=== PATIENT | female | born 1985 | race Caucasian/White ===

== ENCOUNTER 2022-03-20 08:13 | Day surgery (SDC) | payer BC ==
[2022-03-13 10:12] LABS: BASOPHILS % (AUTO) 0.7 % (0-1); EOSINOPHILS % (AUTO) 0.5 % (0-6); LYMPHOCYTES # (AUTO) 2.2 X10'3 (1.1-4.8); LYMPHOCYTES % (AUTO) 31.5 % (21-51); MEAN CORPUSCULAR HEMOGLOBIN 30.1 PG (27.0-31.0); MEAN CORPUSCULAR HGB CONC 33.7 g/dL (33.0-36.5); MEAN CORPUSCULAR VOLUME 89.3 FL (78-98); MEAN PLATELET VOLUME 8.2 FL (7.4-10.4); MONOCYTES # (AUTO) 0.5 X10'3 (0-0.9); MONOCYTES % (AUTO) 6.9 % (2-12); NEUTROPHILS # (AUTO) 4.1 X10'3 (1.8-7.7); NEUTROPHILS % (AUTO) 60.4 % (42-75); PRE OP HEMATOCRIT 39.8 % (35.0-45.0); PRE OP HEMOGLOBIN 13.4 g/dL (12.0-16.0); PRE OP PLATELET COUNT 243 X10'3 (140-440); RED BLOOD COUNT 4.46 X10'6 (4.20-5.60); RED CELL DISTRIBUTION WIDTH 14.3 % (11.5-14.5)
[2022-03-13 10:23] LABS: ALBUMIN 4.1 G/DL (3.4-5.0); ALBUMIN/GLOBULIN RATIO 1.1 (1.1-1.5); ALKALINE PHOSPHATASE 54 IU/L (46-116); BLOOD UREA NITROGEN 9 MG/DL (7-18); CALCIUM 8.7 MG/DL (8.5-10.1); CHLORIDE 104 MMOL/L (99-107); CREATININE 0.82 MG/DL (0.40-0.90); PRE OP ANION GAP 10 (8-16); PRE OP AST 56 U/L (10-37); PRE OP BILIRUB, TOTAL 0.4 MG/DL (0.0-1.0); PRE OP GLUCOSE 89 MG/DL (70-104); PRE OP POTASSIUM 3.5 MMOL/L (3.4-5.1); PRE OP SODIUM 141 MMOL/L (135-145); TOTAL CARBON DIOXIDE 27.5 MMOL/L (24-32); TOTAL PROTEIN 7.8 G/DL (6.4-8.2); eGFR 79 ML/MIN
[2022-03-13 10:26] LABS: CLARITY,URINE CLEAR (Clear); COLOR,URINE YELLOW (Yellow); GLUCOSE, URINE NEGATIVE (Neg); KETONES,URINE NEGATIVE (Neg); LEUKOCYTE ESTERASE ,URINE NEGATIVE (Neg); NITRITES, URINE NEGATIVE (Neg); OCCULT BLOOD,URINE NEGATIVE (Neg); PROTEIN,URINE NEGATIVE (Neg); UROBILINOGEN,URINE 0.2 E.U/dL (0.2-1.0)
[2022-03-13 10:27] LABS: PRE OP ALT 93 U/L (30-65)
[2022-03-13 10:29] LABS: UA COLLECTION TYPE CLN CATCH MIDSTREAM
[2022-03-13 11:28] LABS: HCG SERUM QL NEGATIVE
[2022-03-20] VITALS (7 sets, daily range): BP systolic 125–149; BP diastolic 67–100
[~2022-03-20] VITALS: Ht 180.3 cm; Wt 124.6 kg
[~2022-03-20 08:13] MED LIST: NO HOME MEDS; ceFOXitin 2GM-NS 100mL ADDvant 100 ML IV ONE; famotidine 20mg tablet PO ONE; ringers solution, lacted 1,000 ML IV SCH
[2022-03-20] MEDS ORDERED: BUPIVAcaine/PF 5 mg/ml 10ml ONE (09:15)
[2022-03-20] MEDS ORDERED: morphine 2 MG/ML inj. syringe IV PRN (09:50)
[2022-03-20] MEDS ORDERED: morphine 4 MG/ML inj SYRINge IV PRN (09:50)
[2022-03-20] MEDS ORDERED: ringers solution, lacted 1,000 ML IV SCH (09:50)
[2022-03-20] MEDS ORDERED: ondansetron/PF 4mg/2ml inj IV PRN (09:50)
[2022-03-20] MEDS ORDERED: proCHLORperazine 10 MG/2 ml inj IV PRN (09:50)
[2022-03-20] MEDS ORDERED: meperidine/PF 25mg/ml syringe IV PRN ×2 (09:50)
[2022-03-20] MEDS ORDERED: sevoflurane 250ml liquid IH ONE (11:36)
[2022-03-20] MEDS ORDERED: dexamethasone sod phosphate 10mg/ml inj ONE (11:36)
[2022-03-20] MEDS ORDERED: LIDOcaine 1% (10mg/ml)w/preservative inj. 20ml MDV ONE (11:36)
[2022-03-20] MEDS ORDERED: neostigmine methylsulfate 1 MG/ML 10ml vial ONE (11:36)
[2022-03-20] MEDS ORDERED: glycopyrrolate 0.2mg/ml inj ONE (11:36)
[2022-03-20] MEDS ORDERED: fentaNYL/PF 50MCG/1 ML 2ML syringe ONE (11:43)
[2022-03-20] MEDS ORDERED: propofol inj 20 ML IV ONE (11:44)
[2022-03-20] MEDS ORDERED: midazolam 1 mg/ML 2ml injection ONE (11:44)
[2022-03-20] MEDS ORDERED: rocuronium 10mg/ml inj IV ONE (11:44)
[2022-03-20] MEDS ORDERED: methylene blue (5mg/ml) 50mg/10ml ampul IV ONE (11:46)
[2022-03-20] MEDS ORDERED: ondansetron/PF 4mg/2ml inj ONE (11:58)
[2022-03-20] MEDS ORDERED: metoprolol tartrate 1mg/ml inj IV ONE (11:58)
[2022-03-20] MEDS ORDERED: meperidine/PF 25mg/ml syringe ONE (12:27)
[2022-03-20] MEDS ORDERED: oxyCODONE/APAP 5-325mg tablet PO ONE (13:40)
--- NOTE | 2022-03-20 13:42 | NUR ---
Received from OR via [facility], accompanied by Anesthesiologist DR. BHAKTA and report given by Anesthesiolgist. LAP SITES CDI. PIV TO RIGHT HAND 20G WITH LR RUNNING AT 100ML/HR. HYPERTESNIVE WITH DIASTOLIC 100, DR. BHAKTA AWARE, METOPROLOL GIVEN IN OR. ON 10L MASK SATURATION 100%. STATES SEVERE PAIN HOWEVER UNABLE TO GIVE A NUMBER, DEMEROL GIVEN. RESPONDS TO QUESTIONS, STILL GROGGY. WILL CONTINUE TO MONITOR.
[2022-03-20] MEDS: meperidine/PF 25mg/ml syringe IV PRN ×2 (13:49→14:24)
--- NOTE | 2022-03-20 14:42 | NUR ---
PATIENT DISCHARGED HOME TO , VARGAS WITH ALL BELONGINGS. PAIN MINIMAL, CONTROLLED WITH PO PERCOCET. DENIES NAUSEA. A&O. PIV REMOVED.
== END 2022-03-20 14:42 | disposition home or self-care (01) ==
LOC: PAS 08:13
PROVIDERS: ATTEND Obstetrics & Gynecology
DX: N83.292 Other ovarian cyst, left side (principal); N80.3 Endometriosis of pelvic peritoneum; E66.9 Obesity, unspecified; N80.1 Endometriosis of ovary; N73.6 Female pelvic peritoneal adhesions (postinfective); Z79.899 Other long term (current) drug therapy
CPT/HCPCS: 36415; 58350; 58558; 58662; 80053; 81003; 82948; 84703; 85025; 86885; 86900; 86901; 87811; 93005; A6258; C1758; J0694; J1100; J2175; J2250; J2405; J2704; J2710; J3010; J3490; J7030; J7120; Q9968; Z7506; Z7508; Z7512; A4355; A4618; A6250; A7000